=== PATIENT | female | born 1990 | race Caucasian/White ===

== ENCOUNTER 2020-10-05 14:44 | Emergency (ER) | payer BC ==
[~2020-10-05] VITALS: Ht 172.7 cm; Wt 124.4 kg
--- NOTE | 2020-10-05 15:12 | NUR ---
C/O PAIN TO RT LOWER BACK, FELT SOMETHING POP WHEN SHE SAT DOWN TO USE TOILET AT ABOUT 1100 TODAY. TOOK TYLENOL AT 1200. DENIES HX BACK PAIN, NUMBNESS/TINGLING TO LE'S BILAT, URINARY SX.
[2020-10-05] MEDS ORDERED: FLUV100T2 PO (15:15)
[2020-10-05] MEDS ORDERED: LITH300T3 PO (15:15)
[2020-10-05] MEDS ORDERED: QUET300T PO (15:15)
--- NOTE | 2020-10-05 15:23 | NUR ---
PT NOTIFIED OF POTENTIAL NEED FOR URINE SPECIMEN: DENIES URGE TO VOID, CURRENTLY.
--- NOTE | 2020-10-05 15:37 | NUR ---
WAITING FOR ERP EXAM
--- NOTE | 2020-10-05 15:56 | NUR ---
PELON DINERO NOW AT BS FOR EXAM
[2020-10-05] MEDS ORDERED: KETOROLAC 30 MG/1 ML IM ONE (16:00)
[2020-10-05] MEDS ORDERED: DIAZEPAM 5 MG TABLET PO ONE (16:00)
[2020-10-05] MEDS ORDERED: LIDODERM 5% PATCH TD ONE ×2 (16:00→16:09)
[2020-10-05] MEDS ORDERED: KETOROLAC 30 MG/1 ML ONE (16:09)
[2020-10-05] MEDS ORDERED: DIAZEPAM 5 MG TABLET ONE (16:09)
--- NOTE | 2020-10-05 16:18 | NUR ---
VALIUM AND TORADOL GIVEN PER EMAR. LIDOCAINE PATCH APPLIED TO RT FLANK AREA PER PT INSTRUCTIONS.
[2020-10-05 16:19] VITALS: BP 147/97
== END 2020-10-05 17:12 | disposition home or self-care (01) ==
LOC: ED 15:31
DX: M54.5 Low back pain (principal); F17.210 Nicotine dependence, cigarettes, uncomplicated
CPT/HCPCS: 96372; 99283; 99406; J1885